=== PATIENT | male | born 1980 | race Caucasian/White ===

== ENCOUNTER → 2018-12-07 | Outpatient (CLI) | payer BC ==
--- NOTE | 2018-12-07 11:10 | CT ---
EXAMINATION TYPE: CT abdomen pelvis w con DATE OF EXAM: 12/07/2018 COMPARISON: None. HISTORY: Right lower quadrant pain-[address] DLP: 1081.7 mGycm, Automated Exposure Control for Dose Reduction was Utilized. CONTRAST: CT scan of the abdomen and pelvis is performed with oral and with IV Contrast, patient injected with 100 mL of Isovue 300. FINDINGS: LUNG BASES: No significant abnormality is appreciated. LIVER/GB: There is simple appearing 3.0 cm thin-walled cyst in the left hepatic dome axial image 10. Liver is diffusely low dense consistent with fatty infiltration.. PANCREAS: No significant abnormality is seen. SPLEEN: Spleen is enlarged in size at 16.6 cm long axis axial image 18. ADRENALS: No significant abnormality is seen. KIDNEYS: There is simple appearing 3.9 cm thin-walled cyst left kidney upper to mid pole level axial image 28 series 5. There is symmetric cortical medullary uptake and excretion without hydronephrosis seen bilaterally. Bladder is felt within normal limits. BOWEL: Oral contrast reaches level of the sigmoid colon. There is no suspicious small or large bowel dilatation. There is normal contrast filled appendix extending medially from cecum seen best coronal images 45 through 50. PROSTATE/SEMINAL VESICLES: No gross abnormality seen. LYMPH NODES: No greater than 1cm abdominal or pelvic lymph nodes are appreciated. OSSEOUS STRUCTURES: Mild height loss and lower thoracic vertebra with vacuum disc phenomenon and mild disc space narrowing with mild to moderate anterior and lateral spurring is present. OTHER: No significant additional abnormality is seen. IMPRESSION: No CT evidence for acute appendicitis. No significant acute finding is seen to account fo r patient's clinical symptoms.
== END | disposition home or self-care (01) ==
LOC: RADCTMAIN 08:33
PROVIDERS: ATTEND Surgery Plastic and Reconstructive Surgery
DX: R10.31 Right lower quadrant pain (principal)
CPT/HCPCS: 74177; Q9967 ×2